=== PATIENT | male | born 1990 | race Caucasian/White ===

== ENCOUNTER 2018-12-04 13:42 | Emergency (ER) | payer OTHER ==
[~2018-12-04] VITALS: Ht 165.1 cm; Wt 75.0 kg
[2018-12-04 13:43] VITALS: BP 121/75
[2018-12-04] MEDS ORDERED: IBUPROFEN 600 MG TAB PO ONE (18:30)
[2018-12-04] MEDS ORDERED: IBUP-1022 PO (18:32)
== END 2018-12-04 18:38 | disposition home or self-care (01) ==
LOC: M ED 13:42
DX: S29.012A Strain of muscle and tendon of back wall of thorax, initial encounter (principal); X58.XXXA Exposure to other specified factors, initial encounter; Y92.89 Other specified places as the place of occurrence of the external cause; F17.210 Nicotine dependence, cigarettes, uncomplicated

== ENCOUNTER → 2018-12-22 | Outpatient (CLI) | payer OTHER ==
[~2018-12-22] MED LIST: IBUP-1022 PO
--- NOTE | 2018-12-22 09:45 | REP ---
Clinical: Left lower extremity pain. Technique: Axial noncontrast images from the level of the femoral condyles to the hind foot with coronal and sagittal re-formations. Findings: The osseous structures and joint spaces as well as associated musculature all appear normal for age and the grossly unremarkable. There is an approximately 6.0 x 2.5 x 2.0 mm radiodense foreign body in the subcutaneous fat medially at the level of the mid tibia. Impression: 1. Osseous structures, joint spaces, and musculature appear normal. 2. Small radiodense foreign body possible metallic or glass fragment in the subcutaneous tissues along the medial aspect at the level of the mid tibia. Electronically Signed by Alireza Quevedo MD 12/22/2018 09:37 A
== END ==
LOC: M RAD 08:49
PROVIDERS: ATTEND Family Medicine
DX: M79.605 Pain in left leg (principal)

== ENCOUNTER 2019-01-24 12:21 | Emergency (ER) | payer OTHER ==
[~2019-01-24] VITALS: Ht 152.4 cm; Wt 31.8 kg
[2019-01-24] MEDS ORDERED: KETOROLAC 30 MG/ML VIAL (J1885) IV ONE (15:00)
[2019-01-24] MEDS ORDERED: NS 1,000 ML IV ONE (15:00)
[2019-01-24 15:20] LABS: BASO % 0.4 % (0.0-1.0); EOS # 0.2 10^3/uL (0.0-0.50); EOS % 2.3 % (0.0-3.0); HEMATOCRIT 44.3 % (42.0-52.0); LYMPH # 1.5 10^3/uL (1.5-6.5); LYMPH % 21.1 % (24.0-44.0); MEAN CORPUSCULAR HEMOGLOBIN 29.1 pg (27.0-33.0); MEAN CORPUSCULAR HGB CONC 33.9 g/dl (32.0-36.5); MEAN CORPUSCULAR VOLUME 85.9 fl (80.0-96.0); MONO # 1.3 10^3/uL (0.0-0.8); NEUTROPHILS % 57.1 % (36.0-66.0); PLATELET COUNT, AUTOMATED 184 10^3/uL (150-450); RED BLOOD COUNT 5.16 10^6/uL (4.30-6.10); WHITE BLOOD COUNT 7.1 10^3/uL (4.0-10.0)
[2019-01-24 15:38] LABS: INFLUENZA A AMPLIFICATION NEGATIVE (NEGATIVE); INFLUENZA B AMPLIFICATION NEGATIVE (NEGATIVE)
[2019-01-24 15:47] LABS: CPK CREATINE PHOSPHOKINASE 77 U/L (39-308)
[2019-01-24 15:50] LABS: MONO SCRN NEGATIVE (NEGATIVE)
[2019-01-24 16:27] VITALS: BP 100/62
[2019-01-24] MEDS ORDERED: AUGM875T28 PO (16:55)
[2019-01-24] MEDS ORDERED: IBUP-1022 PO (16:55)
== END 2019-01-24 17:04 | disposition home or self-care (01) ==
LOC: M ED 12:21
DX: J01.90 Acute sinusitis, unspecified (principal); Z72.0 Tobacco use
CPT/HCPCS: 82550; 85025; 86308; 87631; 87880; 96361; 96374; 99284; J1885

== ENCOUNTER 2019-04-23 09:14 | Emergency (ER) | payer OTHER ==
[~2019-04-23] VITALS: Ht 165.1 cm; Wt 79.5 kg
[~2019-04-23 09:14] MED LIST changes: +AUGM875T28 PO
[2019-04-23 10:20] LABS: HEMATOCRIT 49.8 % (42.0-52.0); HEMOGLOBIN 16.6 g/dl (13.5-17.5); MEAN CORPUSCULAR HEMOGLOBIN 29.4 pg (27.0-33.0); MEAN CORPUSCULAR HGB CONC 33.3 g/dl (32.0-36.5); MEAN CORPUSCULAR VOLUME 88.3 fl (80.0-96.0); PLATELET COUNT, AUTOMATED 236 10^3/uL (150-450); RED BLOOD COUNT 5.64 10^6/uL (4.30-6.10); WHITE BLOOD COUNT 7.9 10^3/uL (4.0-10.0)
[2019-04-23 11:00] LABS: ACETAMINOPHEN LEVEL < 2.0 UG/ML (10.0-30.0); ALBUMIN 4.6 GM/DL (3.2-5.2); ALT/SGPT 28 U/L (12-78); BILIRUBIN,DIRECT < 0.1 MG/DL (0.0-0.2); BILIRUBIN,TOTAL 0.3 MG/DL (0.2-1.0); BLOOD UREA NITROGEN 18 MG/DL (7-18); CALCIUM LEVEL 9.9 MG/DL (8.5-10.1); CARBON DIOXIDE LEVEL 33 MEQ/L (21-32); CHLORIDE LEVEL 102 MEQ/L (98-107); CREATININE FOR GFR 0.88 MG/DL (0.70-1.30); ETHYL ALCOHOL (ETHANOL) < 0.003 % (0.000-0.010); GLOMERULAR FILTRATION RATE > 60.0 (>60); GLUCOSE, FASTING 91 MG/DL (70-100); SALICYLATE LEVEL < 1.7 MG/DL (5.0-30.0); SODIUM LEVEL 139 MEQ/L (136-145); THYROID STIMULATING HORMONE 0.867 uIU/ML (0.358-3.740); TOTAL PROTEIN 8.4 GM/DL (6.4-8.2)
[2019-04-23 11:28] LABS: AMPHETAMINES LEVEL URINE NEGATIVE (NEGATIVE); BARBITURATES URINE NEGATIVE (NEGATIVE); BENZODIAZEPINES URINE NEGATIVE (NEGATIVE); CANNABINOIDS URINE NEGATIVE (NEGATIVE); COCAINE METABOLITE URINE NEGATIVE (NEGATIVE); METHADONE URINE NEGATIVE (NEGATIVE); OPIATES URINE NEGATIVE (NEGATIVE); PHENCYCLIDINE URINE NEGATIVE (NEGATIVE)
[2019-04-23] MEDS ORDERED: EQL50CAP4 PO (13:04)
[2019-04-23] MEDS ORDERED: CYCL10TA PO (13:04)
[2019-04-23] MEDS ORDERED: NICO21DI9 TD (13:04)
[2019-04-23] MEDS ORDERED: NICOTINE 21MG/24HR 1 EA TRANSDERMAL TD ONE (14:30)
--- NOTE | 2019-04-23 20:36 | ECGEPIP ---
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
[2019-04-24 03:58] VITALS: BP 117/72
--- NOTE | 2019-04-24 22:36 | ECGEPIP ---
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
== END 2019-04-24 04:00 ==
LOC: M ED 09:14
DX: R45.81 Low self-esteem (principal)
CPT/HCPCS: 36415; 80048; 80076; 80307; 84443; 85027; 93005; 99284; G0480

== ENCOUNTER 2019-05-02 14:17 | Emergency (ER) | payer OTHER ==
[~2019-05-02 14:17] MED LIST changes: +CYCL10TA PO; +EQL50CAP4 PO; +NICO21DI9 TD
--- NOTE | 2019-05-02 15:44 | ED PDOC ---
Provider Note Phone consultation undertaken, PSA worker reports that the patient had presented for alcohol withdrawal. He has a recent inpatient psych stay for suicidal thoughts, however on this presentation despite being a depend he is not accompanied by any safety aids as he is not suicidal or homicidal. The patient reports he present for alcohol withdrawal consultations undertaken out of an abundance of concern. PSA worker reports that there is no suicidal or homicidal ideation and other than his presentation for alcohol withdrawal treatment he has no mental health concerns that he wishes to present for. The patient does not meet involuntary criteria as he is not presenting any significant change in chronic risk factors that are primarily historical, he is denying any suicidal or homicidal ideation and does not appear significantly impaired by a mental health condition as reported by the PSA from the medical provider. He declines voluntary admission and thus can be discharged in good suzanne. ANIKET KC DO May 02, 2019 15:44
[2019-05-02 16:39] VITALS: BP 122/78
== END 2019-05-02 16:34 | disposition home or self-care (01) ==
LOC: M ED 14:17 → EDBD 14:17 → M ED 16:34
DX: F10.10 Alcohol abuse, uncomplicated (principal); F33.9 Major depressive disorder, recurrent, unspecified; Z91.5 Personal history of self-harm; F17.210 Nicotine dependence, cigarettes, uncomplicated

== ENCOUNTER 2019-05-08 16:08 | Emergency (ER) | payer OTHER ==
[~2019-05-08] VITALS: Ht 165.1 cm; Wt 79.5 kg
[2019-05-08 16:09] VITALS: BP 118/67
[2019-05-08] MEDS ORDERED: [UNRECOGNIZED DRUG - REMARK] (16:15)
[2019-05-08] MEDS ORDERED: IBUP-1022 (16:15)
[2019-05-08] MEDS ORDERED: CYCL5TAB PO (16:15)
[2019-05-08] MEDS ORDERED: KETOROLAC 60 MG/2 ML VIAL (J1885) IM ONE (17:45)
--- NOTE | 2019-05-08 18:02 | REPVR ---
PROCEDURE INFORMATION: Exam: CT Cervical Spine Without Contrast Exam date and time: 05/08/2019 5:41 PM Clinical history: 29 years old, male; Neck pain; Additional info: Trauma TECHNIQUE: Imaging protocol: Computed tomography images of the cervical spine without contrast. Radiation optimization: All CT scans at this facility use at least one of these dose optimization techniques: automated exposure control; mA and/or kV adjustment per patient size (includes targeted exams where dose is matched to clinical indication); or iterative reconstruction. COMPARISON: No relevant prior studies available. FINDINGS: Vertebrae: Straightening of the cervical lordosis. Vertebral body heights are maintained. No locked or perched facets. No acute cervical spine fracture. The dens is intact. Atlantoaxial intervals are normal. Discs/Spinal canal/Neural foramina: Disc space heights are normal. Soft tissues: Unremarkable. Lungs: Lung apices are clear. IMPRESSION: No acute cervical spine fracture. Electronically signed by: Cameron Moody On 05/08/2019 18:02:13 PM
--- NOTE | 2019-05-08 18:52 | REP ---
Thoracic spine series: Three views. History: Trauma. Findings: Thoracic vertebral body heights are preserved. Alignment is normal. Pedicles and posterior elements are intact. No paravertebral soft-tissue mass is appreciated. Impression: Negative thoracic spine radiographs. No fracture visible. Electronically Signed by Kasi Barboza MD 05/08/2019 06:58 P
[2019-05-08] MEDS ORDERED: PRED20TA PO (19:26)
== END 2019-05-08 19:43 | disposition home or self-care (01) ==
LOC: M ED 16:08
DX: M54.2 Cervicalgia (principal); M54.6 Pain in thoracic spine; F17.210 Nicotine dependence, cigarettes, uncomplicated
CPT/HCPCS: 72072; 72125; 96372; 99283; J1885

== ENCOUNTER 2019-07-19 11:45 | Emergency (ER) | payer OTHER ==
[~2019-07-19] VITALS: Ht 165.1 cm; Wt 79.7 kg
[~2019-07-19 11:45] MED LIST changes: +CYCL5TAB PO; +IBUP-1022; +PRED20TA PO; +[UNRECOGNIZED DRUG - REMARK]
[2019-07-19] MEDS ORDERED: diphenhydrAMINE INJ 50MG/ML VIAL (J1200) IV STA (12:51)
[2019-07-19] MEDS ORDERED: KETOROLAC 30 MG/ML VIAL (J1885) IM ONE (13:00)
[2019-07-19] MEDS ORDERED: METOCLOPRAMIDE INJ 10MG/2ML VIAL (J2765) IV ONE (13:00)
[2019-07-19] MEDS ORDERED: NS 1,000 ML IV ONE (13:00)
--- NOTE | 2019-07-19 13:52 | REP ---
CT of the brain without IV contrast for altered mental status: There are no comparisons. There is no acute intracranial hemorrhage. There is no edema, mass effect or midline shift. The cortical stripe is unremarkable. The ventricles are normal size. The visualized paranasal sinuses and mastoid air cells are clear. Impression: Essentially negative CT study of the brain. Electronically Signed by Nguyễn Chow MD 07/19/2019 01:43 P
[2019-07-19 14:14] LABS: BASO # 0.1 10^3/uL (0.0-0.2); BASO % 0.6 % (0.0-1.0); EOS # 0.2 10^3/uL (0.0-0.5); EOS % 2.6 % (0.0-3.0); HEMATOCRIT 44.1 % (42.0-52.0); HEMOGLOBIN 15.3 g/dl (13.5-17.5); LYMPH # 2.2 10^3/uL (1.5-5.0); LYMPH % 27.9 % (24.0-44.0); MEAN CORPUSCULAR HEMOGLOBIN 29.8 pg (27.0-33.0); MEAN CORPUSCULAR HGB CONC 34.7 g/dl (32.0-36.5); MONO # 0.7 10^3/uL (0.0-0.8); MONO % 9.3 % (0.0-5.0); NEUTROPHILS # 4.7 10^3/uL (1.5-8.5); NEUTROPHILS % 59.5 % (36.0-66.0); PLATELET COUNT, AUTOMATED 224 10^3/uL (150-450); RED BLOOD COUNT 5.13 10^6/uL (4.30-6.10)
[2019-07-19] MEDS ORDERED: KETOROLAC 30 MG/ML VIAL (J1885) IV ONE (14:15)
[2019-07-19 15:19] LABS: ACETAMINOPHEN LEVEL < 2.0 UG/ML (10.0-30.0); ALBUMIN 4.5 GM/DL (3.2-5.2); ALT/SGPT 19 U/L (12-78); BILIRUBIN,DIRECT < 0.1 MG/DL (0.0-0.2); BILIRUBIN,TOTAL 0.3 MG/DL (0.2-1.0); BLOOD UREA NITROGEN 18 MG/DL (7-18); CALCIUM LEVEL 8.8 MG/DL (8.5-10.1); CARBON DIOXIDE LEVEL 32 MEQ/L (21-32); CHLORIDE LEVEL 101 MEQ/L (98-107); CK-MB VALUE MASS < 1.0 NG/ML (<3.6); CPK CREATINE PHOSPHOKINASE 99 U/L (39-308); CREATININE FOR GFR 0.95 MG/DL (0.70-1.30); ETHYL ALCOHOL (ETHANOL) < 0.003 % (0.000-0.010); GLOMERULAR FILTRATION RATE > 60.0 (>60); GLUCOSE, FASTING 92 MG/DL (70-100); MB/CK RELATIVE INDEX 1.01 (< OR =4); POTASSIUM SERUM 3.7 MEQ/L (3.5-5.1); SALICYLATE LEVEL < 1.7 MG/DL (5.0-30.0); SODIUM LEVEL 140 MEQ/L (136-145); THYROID STIMULATING HORMONE 0.608 uIU/ML (0.358-3.740); TOTAL PROTEIN 7.6 GM/DL (6.4-8.2); TROPONIN I < 0.02 NG/ML (< 0.10)
[2019-07-19 15:45] VITALS: BP 118/57
--- NOTE | 2019-07-20 20:19 | ECGEPIP ---
[facility] - ED Test Date: 2019-07-19 Pat Name: TRISTEN CANALES Department: Room: - Gender: Male [employer]: ct : 1990 Requested By: SERGEY RECINOS Order Number: [id number] Reading MD: Trena Zavaleta Measurements Intervals [place] Rate: 52 P: 33 CO: 159 QRS: 58 QRSD: 106 T: 18 QT: 431 QTc: 404 Interpretive Statements SINUS BRADYCARDIA INCREASED RATE 04/24/19 Electronically Signed on 07-20-2019 20:19:35 EST by Trena Zavaleta
== END 2019-07-19 15:51 | disposition home or self-care (01) ==
LOC: M ED 11:45
DX: S06.0X0A Concussion without loss of consciousness, initial encounter (principal); X58.XXXA Exposure to other specified factors, initial encounter; Y92.89 Other specified places as the place of occurrence of the external cause; F17.220 Nicotine dependence, chewing tobacco, uncomplicated
CPT/HCPCS: 70450; 80048; 80076; 82550; 82553; 84443; 84484; 85025; 93005; 94760; 96374; 96375; 99284; G0480; J1200; J1885; J2765

== ENCOUNTER 2019-07-23 01:13 | Emergency (ER) | payer OTHER ==
[~2019-07-23] VITALS: Ht 165.1 cm; Wt 81.8 kg
[2019-07-23 01:48] LABS: BASO % 0.3 % (0.0-1.0); EOS # 0.2 10^3/uL (0.0-0.5); EOS % 3.1 % (0.0-3.0); HEMATOCRIT 43.7 % (42.0-52.0); HEMOGLOBIN 14.6 g/dl (13.5-17.5); LYMPH # 1.9 10^3/uL (1.5-5.0); LYMPH % 31.4 % (24.0-44.0); MEAN CORPUSCULAR HEMOGLOBIN 28.3 pg (27.0-33.0); MEAN CORPUSCULAR HGB CONC 33.4 g/dl (32.0-36.5); MEAN CORPUSCULAR VOLUME 84.9 fl (80.0-96.0); MONO # 0.7 10^3/uL (0.0-0.8); MONO % 11.6 % (0.0-5.0); NEUTROPHILS # 3.2 10^3/uL (1.5-8.5); NEUTROPHILS % 53.3 % (36.0-66.0); PLATELET COUNT, AUTOMATED 202 10^3/uL (150-450); RED BLOOD COUNT 5.15 10^6/uL (4.30-6.10); WHITE BLOOD COUNT 6.1 10^3/uL (4.0-10.0)
[2019-07-23 02:11] LABS: ALBUMIN 3.9 GM/DL (3.2-5.2); BILIRUBIN,DIRECT 0.2 MG/DL (0.0-0.2); BILIRUBIN,TOTAL 0.4 MG/DL (0.2-1.0); TOTAL PROTEIN 7.1 GM/DL (6.4-8.2)
[2019-07-23 02:16] LABS: BLOOD UREA NITROGEN 13 MG/DL (7-18); CALCIUM LEVEL 8.8 MG/DL (8.5-10.1); CARBON DIOXIDE LEVEL 31 MEQ/L (21-32); CHLORIDE LEVEL 104 MEQ/L (98-107); CREATININE FOR GFR 0.96 MG/DL (0.70-1.30); GLOMERULAR FILTRATION RATE > 60.0 (>60); GLUCOSE, FASTING 92 MG/DL (70-100); POTASSIUM SERUM 3.8 MEQ/L (3.5-5.1); SODIUM LEVEL 139 MEQ/L (136-145)
[2019-07-23 02:19] LABS: INFLUENZA A AMPLIFICATION NEGATIVE (NEGATIVE); INFLUENZA B AMPLIFICATION NEGATIVE (NEGATIVE)
[2019-07-23] MEDS ORDERED: LOPE-39 PO (02:55)
[2019-07-23] MEDS ORDERED: ONDA4TAB6 PO (02:55)
[2019-07-23] MEDS ORDERED: LOPERAMIDE 2 MG CAPLET PO ONE (03:00)
[2019-07-23] MEDS ORDERED: ONDANSETRON 4 MG ORAL DISINTEGRATING TAB (Q0162 PER 1MG) PO ONE (03:00)
[2019-07-23 03:08] VITALS: BP 113/62
== END 2019-07-23 03:16 | disposition home or self-care (01) ==
LOC: M ED 01:13
DX: K52.9 Noninfective gastroenteritis and colitis, unspecified (principal)
CPT/HCPCS: 36415; 80048; 80076; 81001; 83690; 85025; 87502; 99284; Q0162

== ENCOUNTER 2019-11-02 08:39 | Emergency (ER) | payer OTHER ==
[~2019-11-02] VITALS: Ht 165.1 cm; Wt 74.1 kg
[~2019-11-02 08:39] MED LIST changes: +CYCL-707 PO; -CYCL10TA PO; +LOPE-39 PO; +ONDA4TAB6 PO
[2019-11-02 10:14] LABS: BASO % 0.7 % (0.0-1.0); EOS # 0.2 10^3/uL (0.0-0.5); EOS % 2.8 % (0.0-3.0); HEMATOCRIT 42.8 % (42.0-52.0); HEMOGLOBIN 15.2 g/dl (13.5-17.5); LYMPH % 36.3 % (24.0-44.0); MEAN CORPUSCULAR HEMOGLOBIN 29.9 pg (27.0-33.0); MEAN CORPUSCULAR HGB CONC 35.5 g/dl (32.0-36.5); MEAN CORPUSCULAR VOLUME 84.3 fl (80.0-96.0); MONO # 0.5 10^3/uL (0.0-0.8); MONO % 9.4 % (0.0-5.0); NEUTROPHILS # 2.8 10^3/uL (1.5-8.5); NEUTROPHILS % 50.6 % (36.0-66.0); PLATELET COUNT, AUTOMATED 219 10^3/uL (150-450); RED BLOOD COUNT 5.08 10^6/uL (4.30-6.10); WHITE BLOOD COUNT 5.6 10^3/uL (4.0-10.0)
[2019-11-02 11:33] LABS: HEPATITIS B SURFACE ANTIBODY POSITIVE (POSITIVE); HEPATITIS B SURFACE ANTIGEN NEGATIVE (NEGATIVE); HIV 1&2 SCREEN CENTAUR NEGATIVE (NEGATIVE)
--- NOTE | 2019-11-02 11:36 | REP ---
SCROTAL ULTRASOUND: Real-time sonographic evaluation of the scrotum and contents performed. The testicles are normal in size and echotexture, right testicle measuring 4.7 x 2.8 x 2.9 cm and left testicle 5.1 x 2.6 x 2.9 cm. There is no testicular mass or torsion, blood flow is seen in each testicle with duplex Doppler evaluation. There is a tiny 3 mm cyst in the head of the epididymis. There is no significant venous dilatation bilaterally. There are very small hydroceles. IMPRESSION: No testicular mass or torsion. Very small hydroceles. Electronically Signed by Nguyễn Biswas MD 11/02/2019 01:41 P
[2019-11-02 12:34] LABS: CHLAMYDIA DNA AMPLIFICATION NEGATIVE (NEGATIVE); GC DNA AMPLIFICATION NEGATIVE (NEGATIVE)
[2019-11-02 12:41] VITALS: BP 134/78
[2019-11-06 00:06] LABS: HSV-1 DNA Negative (Negative); HSV-2 DNA Negative (Negative)
== END 2019-11-02 12:43 | disposition home or self-care (01) ==
LOC: M ED 08:39
DX: N43.3 Hydrocele, unspecified (principal); Z87.891 Personal history of nicotine dependence